=== PATIENT | male | born 1955 | race Caucasian/White ===

== ENCOUNTER 2018-03-23 15:07 | Emergency (ER) | payer BC | END 2018-03-23 16:48 | disposition home or self-care (01) | LOC: EDH 15:07 | DX: S06.0X0A Concussion without loss of consciousness, initial encounter (principal); S13.8XXA Sprain of joints and ligaments of other parts of neck, initial encounter; W18.39XA Other fall on same level, initial encounter; Y93.89 Activity, other specified; Y92.89 Other specified places as the place of occurrence of the external cause; Y99.8 Other external cause status | CPT/HCPCS: 72125 ==